=== PATIENT | female | born 1995 | race Two or more races ===

== ENCOUNTER 2024-03-01 11:25 | Emergency (ER) | payer SELFPAY ==
[~2024-03-01] VITALS: Ht 170.2 cm; Wt 64.0 kg
[2024-03-01 11:27] VITALS: O2SAT 99
[2024-03-01 11:42] VITALS: O2SAT 100
[2024-03-01] MEDS ORDERED: ACET-2708 MT (12:58)
[2024-03-01 13:29] VITALS: TEMP 98.3
[2024-03-01] MEDS: ACETAMINOPHEN 500MG TABLET PO ONE (13:29)
[2024-03-01 13:30] VITALS: BP 107/57; PULSE 71; RESP 18
[2024-03-01] MEDS: KETOROLAC 30MG/ML VIAL IM ONE (13:30)
[2024-03-01 14:23] LABS: CLARITY URINE CLOUDY (CLEAR); COLOR URINE YELLOW (YELLOW); GLUCOSE URINE NEGATIVE (NEGATIVE); KETONES URINE TRACE (NEGATIVE); LEUKOCYTE ESTERASE URINE 2+ (NEGATIVE); NITRITE URINE NEGATIVE (NEGATIVE); OCCULT BLOOD URINE TRACE (NEGATIVE); PROTEIN URINE TRACE (NEGATIVE); SPECIFIC GRAVITY URINE 1.024 (1.005-1.030)
[2024-03-01 14:35] LABS: SQUAMOUS EPITHELIAL CELL URINE 1+ /lpf (RARE/1+); WBC URINE TNTC /hpf (0-2); YEAST URINE NONE SEEN
[2024-03-01 14:37] LABS: BACTERIA URINE 3+
== END 2024-03-01 14:01 | disposition home or self-care (01) ==
LOC: ER 11:25
DX: S52.122A Displaced fracture of head of left radius, initial encounter for closed fracture (principal); W01.0XXA Fall on same level from slipping, tripping and stumbling without subsequent striking against object, initial encounter; Y93.K1 Activity, walking an animal; Y92.89 Other specified places as the place of occurrence of the external cause; Y99.8 Other external cause status
CPT/HCPCS: 81003; 81025; 87086; 87186; 87077; 73080; 29105; 96372; 99284; J1885; Z7610; 29125; A4565